=== PATIENT | female | born 1955 | race Caucasian/White ===

== ENCOUNTER → 2021-05-31 | Outpatient (CLI) | payer MEDICARE ==
[~2021-05-31] MED LIST: AZULFIDINE500 MG PO; CYCLOBENZAPRINE10 MG PO; ELIQUIS 2.5 MG2.5 MG PO; ETODOLAC ER400 MG PO; FOLIC ACID 1 MG1 MG PO; LIPITOR TAB 2020 MG PO; NAPROXEN500 MG PO; OMEPRAZOLE20 M2 PO; PERCOCET 5-3251 EACH PO; PRINIVIL20 MG PO; WOMEN'S 50 PLU1 EACH PO
[2021-05-31 11:43] LABS: HEMOGLOBIN 14.1 gm/dl (12.3-15.3); RED BLOOD COUNT 4.72 M/UL (4.00-5.10); WHITE BLOOD COUNT 6.9 K/UL (4.5-11.0)
[2021-05-31 12:07] LABS: BUN/CREATININE RATIO 55 (0-10)
== END ==
LOC: OPSV2 10:07 → EDSTATUS 10:30 → OPSV2 10:30
PROVIDERS: Anesthesiology
DX: Z01.818 Encounter for other preprocedural examination (principal); M17.12 Unilateral primary osteoarthritis, left knee
CPT/HCPCS: 36415; 80048; 85025; 93005

== ENCOUNTER → 2021-06-07 | Outpatient (CLI) | payer MEDICARE ==
[~2021-06-07] MED LIST changes: +ASPIRIN CHEWABL81 MG PO; +HYDROCODON-ACE1 EAC2 PO
[2021-06-07 13:21] LABS: BUN/CREATININE RATIO 34 (0-10)
== END ==
LOC: LAB 11:41
PROVIDERS: Orthopaedic Surgery
DX: Z01.812 Encounter for preprocedural laboratory examination (principal)
CPT/HCPCS: 36415; 80048; 86850; 86900; 86901

== ENCOUNTER 2021-06-08 07:27 | Day surgery (SDC) | payer MEDICARE ==
[~2021-06-08] VITALS: Ht 160 cm; Wt 80.3 kg
[~2021-06-08 07:27] MED LIST changes: -ASPIRIN CHEWABL81 MG PO; -HYDROCODON-ACE1 EAC2 PO
[2021-06-09] MEDS ORDERED: HYDROCODON-ACE1 EAC2 PO (06:56)
[2021-06-09] MEDS ORDERED: ASPIRIN CHEWABL81 MG PO (06:56)
== END 2021-06-09 14:29 | disposition home or self-care (01) ==
LOC: OR 07:27 → EDSTATUS 14:15 → OR 14:30 → M/S 16:14 → OR 06-09 14:29
DX: M17.12 Unilateral primary osteoarthritis, left knee (principal); I10 Essential (primary) hypertension; E78.00 Pure hypercholesterolemia, unspecified; M54.9 Dorsalgia, unspecified; G89.29 Other chronic pain; K21.9 Gastro-esophageal reflux disease without esophagitis; Z96.651 Presence of right artificial knee joint; Z20.822 Contact with and (suspected) exposure to COVID-19; Z23 Encounter for immunization; Z79.82 Long term (current) use of aspirin
CPT/HCPCS: 73560; 76000; 97110-GP-CQ; 97116-GP-CQ; 97161; 97166; 97535; C1776; J0171; J0690; J1100; J2001; J2704; J2795; J7120